=== PATIENT | female | born 1975 | race African-American/Black ===

== ENCOUNTER 2017-08-31 04:21 | Emergency (ER) | payer MEDICARE ==
[~2017-08-31] VITALS: Ht 162.6 cm; Wt 82.0 kg
[2017-08-31] MEDS ORDERED: ONDANSETRON HCL 4MG/2ML VIAL IV STA ×2 (05:03→07:35)
[2017-08-31] MEDS ORDERED: MORPHINE SULFATE 4 MG/ML CPJ (NOT FOR IM USE) IV STA ×2 (05:03→07:35)
[2017-08-31] MEDS ORDERED: SODIUM CHLORIDE 0.9% 1,000 ML IV ONE (05:03)
[2017-08-31 05:39] LABS: BASOPHILS % 1.3 % (0.0-2.0); EOSINOPHILS % 2.1 % (0.0-5.0); HEMATOCRIT. 22.3 % (36.0-48.0); HEMOGLOBIN. 7.5 g/dL (12.0-16.0); LYMPHOCYTES % 28.9 % (20.0-50.0); MEAN CORPUSCULAR HEMOGLOBIN 28.9 pg (28.0-32.0); MONOCYTES % 7.2 % (2.0-8.0); NEUTROPHILS % 60.5 % (40.0-76.0); PLATELET 127 x1000/uL (130-400); RED BLOOD CELL COUNT 2.59 mill/uL (4.2-5.4); RED CELL DISTRIBUTION WIDTH 20.7 % (11.6-14.6)
[2017-08-31 05:43] LABS: CHLORIDE 103 mEq/L (98-107)
[2017-08-31 05:49] LABS: CARBON DIOXIDE 32 mEq/L (21-32)
[2017-08-31 05:51] LABS: HCG SCREEN NEGATIVE
[2017-08-31] MEDS ORDERED: POTASSIUM CHLORIDE 20MEQ TABLET SR PO ONE (08:00)
[2017-08-31 08:41] VITALS: BP 130/71
[2017-08-31] MEDS ORDERED: HYDROCODONE/ACETAMINOPHEN 5/325MG TABLET PO ONE (08:45)
== END 2017-08-31 08:56 | disposition home or self-care (01) ==
LOC: ER 04:21
DX: D57.00 Hb-SS disease with crisis, unspecified (principal); M54.5 Low back pain
CPT/HCPCS: 36415; 71010; 80048; 84703; 85025; 85044; 93005; 96361; 96374; 96375; 96376; 99285; J2270; J2405; J7030